=== PATIENT | male | born 1945 | race Two or more races ===

== ENCOUNTER 2019-07-13 08:02 | Outpatient (CLI) | payer OTHER | END 2019-07-13 08:10 | disposition home or self-care (01) | LOC: LAB 08:02 → EDBD 08:02 → LAB 08:10 | DX: R10.32 Left lower quadrant pain (principal); K57.30 Diverticulosis of large intestine without perforation or abscess without bleeding; D12.5 Benign neoplasm of sigmoid colon ==

== ENCOUNTER 2019-07-24 08:48 | Outpatient (CLI) | payer OTHER | END 2019-07-24 08:50 | disposition home or self-care (01) | LOC: TOM 08:48 | DX: R10.32 Left lower quadrant pain (principal); K57.30 Diverticulosis of large intestine without perforation or abscess without bleeding; D12.5 Benign neoplasm of sigmoid colon | CPT/HCPCS: 74177; Q9965 ==

== ENCOUNTER 2019-07-25 07:20 | Day surgery (SDC) | payer OTHER | END 2019-07-25 12:55 | disposition home or self-care (01) | LOC: AMB-ENDOS 07:20 | DX: D12.5 Benign neoplasm of sigmoid colon (principal); K57.30 Diverticulosis of large intestine without perforation or abscess without bleeding ==